=== PATIENT | female | born 1965 | race African-American/Black ===

== ENCOUNTER 2021-12-31 14:10 | Emergency (ER) | payer BC, OTHER ==
[2021-12-31 14:52] VITALS: BP 135/66; PULSE 61; TEMP 97.9; BMI 45.1
[2021-12-31] MEDS ORDERED: ACETAMINOPHEN 325 MG TABLET (FP) PO ONE (17:30)
[2021-12-31] MEDS ORDERED: ACETAMINOPHEN 500 MG TABLET (FP) ONE (17:32)
== END 2021-12-31 20:18 | disposition home or self-care (01) ==
LOC: JERFT 14:10
DX: R22.43 Localized swelling, mass and lump, lower limb, bilateral (principal)
CPT/HCPCS: 73610-TC-LT-FY; 73610-TC-RT-FY; 73630-TC-LT; 73630-TC-RT-FY; 93970-TC; 99284-25